=== PATIENT | male | born 2000 | race Caucasian/White ===

== ENCOUNTER → 2023-07-28 06:33 | Day surgery (SDC) | payer OTHER, SELFPAY | LOC: GI 06:33 | PROVIDERS: ATTENDING PHYSICIAN Internal Medicine | DX: K20.0 Eosinophilic esophagitis (principal); K22.89 Other specified disease of esophagus; K44.9 Diaphragmatic hernia without obstruction or gangrene; R13.10 Dysphagia, unspecified | CPT/HCPCS: 43239; 88305 ==

== ENCOUNTER → 2024-01-27 06:16 | Day surgery (SDC) | payer OTHER, SELFPAY | LOC: GI 06:16 | PROVIDERS: ATTENDING PHYSICIAN Internal Medicine | DX: K20.90 Esophagitis, unspecified without bleeding (principal); K22.89 Other specified disease of esophagus; K44.9 Diaphragmatic hernia without obstruction or gangrene | CPT/HCPCS: 43239; 88305; 71046; 80053; 84484; 85025; 87502; 87811; 93005 ==

== ENCOUNTER 2024-01-27 20:31 | Emergency (ER) | payer OTHER, SELFPAY ==
[2024-01-27 20:33] VITALS: BP 126/85
[2024-01-27 21:04] LABS: % Basophils 0.6 % (0-2); % Eosinophils 6.6 % (0-6); % Immature Granulocytes 0.3 % (0-0.5); % Lymphocytes 11.7 % (20.5-51.1); % Monocytes 7.3 % (1.7-9.3); % Neutrophils 73.5 % (42.2-75.2); Absolute Basophils 0.1 10^3/uL (0-0.2); Absolute Lymphocytes 1.7 10^3/uL (1.2-3.4); Absolute Monocytes 1.1 10^3/uL (0.1-0.6); Absolute Neutrophils 10.9 10^3/uL (1.4-6.5); Hematocrit 44.6 % (39.0-52.0); Hemoglobin 15.2 g/dL (13.0-18.0); Mean Corp Hgb Conc. 34.1 g/dL (33.0-37.0); Mean Platelet Volume 8.4 fL (7.4-10.4); Nucleated Red Blood Cells % 0 % (-); Platelet Count 197 10^3/uL (130-400); Red Blood Cell Count 5.07 10^6/uL (4.70-6.10); Red Cell Dist. Width 11.8 % (11.5-14.5); White Blood Cell Count 14.8 10^3/uL (4.8-10.8)
[2024-01-27 21:21] LABS: ALT (SGPT) 31 U/L (0-50); AST (SGOT) 24 U/L (17-59); Albumin 4.7 g/dl (3.5-5.0); Alkaline Phosphatase 48 U/L (38-126); Blood Urea Nitrogen 13 mg/dl (9-20); Calcium 9.4 mg/dl (8.4-10.2); Carbon Dioxide 28 mmol/L (22-30); Chloride 101 mmol/L (98-107); Glucose 133 mg/dl (70-99); Potassium 4.2 mmol/L (3.5-5.1); Sodium 140 mmol/L (135-145); Total Bilirubin 0.6 mg/dl (0.2-1.3); Total Protein 7.3 g/dl (6.3-8.2); eGFR > 60.00
[2024-01-27 21:24] LABS: Troponin I < 0.012 ng/ml
[2024-01-27 22:00] VITALS: BMI 29.6
[2024-01-27 22:19] LABS: COVID-19 Antigen Negative (Negative)
--- NOTE | 2024-01-28 00:05 | ED.GENMED ---
History of Present Illness
<RADHA Coffey - Last Filed: 01/28/24 00:17>
General
Chief Complaint: Fever
Source: patient, significant other and family
Exam Limitations: none
Time Seen by Provider: 01/27/24 23:55
Nursing documentation reviewed up to this point in time: agreed with
History of Present Illness
History of Present Illness:
Pt is a 23 yo M with PMH of eosinophilic esophagitis and GERD who presents to the ED with his mother and girlfriend for fever x 8 hours. Pt states he was under anesthesia for an endoscopy earlier today for a check up on his eosinophilic esophagitis.
He states he developed a cough upon waking up from the procedure but was d/c and went home. When he got home, he began to get chills and was very tired. Pt began developing chest pain a few hours later. He describes it as diffuse and episodic. He
states he has not taken any medication since waking up from anesthesia. Pt notes he also has associated nausea that has been episodic without vomiting. Pt's mother is concerned the endoscopy perforated his esophagus or caused an infection. Pt denies
PALACIOS, rhinorrhea, sputum production, hemoptysis, dyspnea, abdominal pain, v/d, weakness in extremities x 4.
Past History
<RADHA Coffey - Last Filed: 01/28/24 00:17>
Past History
ED Past Medical History: GERD and Other (Esophageal strictures)
ED Past Surgical History: None
Social History
Tobacco: Non-smoker
Review of Systems
<RADHA Coffey - Last Filed: 01/28/24 00:17>
Review of Systems
Allergies reviewed?: Yes
Other source history: family
Constitutional: Reports fever, fatigue and chills
EENT: Reports sore throat; Denies tearing, mouth swelling or runny nose
Respiratory: Reports cough; Denies hemoptysis or trouble breathing
Cardiac: Reports chest pain and diaphoresis; Denies palpitations or syncope
ABD/GI: Reports nausea; Denies abdominal pain, vomiting or diarrhea
: Denies dysuria or difficulty voiding
Musculoskeletal: Reports no symptoms
Skin: Reports no symptoms
Neurological: Denies dizzy, headache, weakness or numbness
Phy Exam
<RADHA Coffey - Last Filed: 01/28/24 00:17>
General Physical Exam
General Presentation: no apparent distress
General age: appears stated age
General Skin: diaphoretic
General Habitus: normal
General Mental: alert
General Hydration: dry mucous membranes (mild)
ENT Exam
ENT Exam: pharyngeal erythema
Cardiovascular Exam
Cardiovascular Exam: regular rate/rhythm and no murmur
Pulmonary Exam
Pulmonary Exam: lungs clear and no respiratory distress
Gastrointestinal Exam
Gastrointestinal Exam: non tender, soft and non distended
Neurological Exam
Neurological Exam: alert, oriented x3, no motor deficits, no sensory deficits and speech normal
Course
<Adela Nguyễn RINKU - Last Filed: 01/28/24 00:17>
Orders/Labs/Results
Orders:
Orders
01/27/24 20:36
Electrocardiogram (*1) Urgent
Reason for Study: Chest Pain
EKG- Treatment ONCE
CR Chest - 2 Views Urgent
Comment:
Reason For Exam: chest pain
01/27/24 20:49
Complete Blood Count/With Diff Urgent
Comprehensive Metabolic Panel Urgent
Troponin I Urgent
01/27/24 21:57
COVID-19 Antigen Urgent
Source: Nasal Swab
Influenza A+B Rapid Molecular Urgent
FIDEL Source: Nasal Swab
Specimen Description:
01/28/24 01:14
Orthostatic VS- Treatment ONCE
01/28/24 01:17
0.9% Sodium Chloride 500 ml [Nss] 500 ml IV BOLUS
Abnormal Lab Results
01/27/24
20:49
WBC 14.8 H 10^3/uL
(4.8-10.8)
Absolute Neuts (auto) 10.9 H 10^3/uL
(1.4-6.5)
Absolute Monos (auto) 1.1 H 10^3/uL
(0.1-0.6)
Absolute Eos (auto) 1.0 H 10^3/uL
(0-0.7)
Lymphocytes % 11.7 L %
(20.5-51.1)
Eosinophils % 6.6 H %
(0-6)
Glucose 133 H mg/dl
(70-99)
01/27/24 20:49
01/27/24 20:49
Vital Signs
Initial and Last Documented VS:
Initial Vital Signs
Temp Pulse Resp BP Pulse Ox
99.8 F 107 18 126/85 96
01/27/24 20:33 01/27/24 20:33 01/27/24 20:33 01/27/24 20:33 01/27/24 20:33
Last Documented Vital Signs
Temp Pulse Resp BP Pulse Ox
99.8 F 86 16 123/72 96
01/27/24 20:33 01/28/24 00:43 01/28/24 00:43 01/28/24 00:43 01/28/24 00:43
<Lenny Flanagan, DO - Last Filed: 01/28/24 01:38>
Orders/Labs/Results
Orders:
Orders
01/27/24 20:36
Electrocardiogram (*1) Urgent
Reason for Study: Chest Pain
EKG- Treatment ONCE
CR Chest - 2 Views Urgent
Comment:
Reason For Exam: chest pain
01/27/24 20:49
Complete Blood Count/With Diff Urgent
Comprehensive Metabolic Panel Urgent
Troponin I Urgent
01/27/24 21:57
COVID-19 Antigen Urgent
Source: Nasal Swab
Influenza A+B Rapid Molecular Urgent
FIDEL Source: Nasal Swab
Specimen Description:
01/28/24 01:14
Orthostatic VS- Treatment ONCE
01/28/24 01:17
0.9% Sodium Chloride 500 ml [Nss] 500 ml IV BOLUS
Abnormal Lab Results
01/27/24
20:49
WBC 14.8 H 10^3/uL
(4.8-10.8)
Absolute Neuts (auto) 10.9 H 10^3/uL
(1.4-6.5)
Absolute Monos (auto) 1.1 H 10^3/uL
(0.1-0.6)
Absolute Eos (auto) 1.0 H 10^3/uL
(0-0.7)
Lymphocytes % 11.7 L %
(20.5-51.1)
Eosinophils % 6.6 H %
(0-6)
Glucose 133 H mg/dl
(70-99)
01/27/24 20:49
01/27/24 20:49
Vital Signs
Initial and Last Documented VS:
Initial Vital Signs
Temp Pulse Resp BP Pulse Ox
99.8 F 107 18 126/85 96
01/27/24 20:33 01/27/24 20:33 01/27/24 20:33 01/27/24 20:33 01/27/24 20:33
Last Documented Vital Signs
Temp Pulse Resp BP Pulse Ox
99.8 F 86 16 123/72 96
01/27/24 20:33 01/28/24 00:43 01/28/24 00:43 01/28/24 00:43 01/28/24 00:43
<RADHA Coffey - Last Filed: 01/28/24 00:17>
MDM/Problems Addressed
Differential Diagnosis Includes:
esophageal perforation, LA
<RADHA Coffey - Last Filed: 01/28/24 00:17>
*Critical Care Note
Total Time (30-74mins, 75-104mins- exclusive of procedures): Not Applicable
<Lenyn Flanagan DO - Last Filed: 01/28/24 01:38>
Update Note
Update Note:
The orthostatic vital signs noted
Endoscopy results from 01/27/2024:
Impression: - Esophageal mucosal changes consistent with
eosinophilic esophagitis. Improved from prior
endoscopy especially in mid/upper esophagus. No longer
small caliber esophagus.
- 2 cm hiatal hernia.
- Normal stomach.
- Normal examined duodenum. Biopsied.
- Biopsies were taken with a cold forceps for
evaluation of eosinophilic esophagitis.
ED Attending Note
<RADHA Coffey - Last Filed: 01/28/24 00:17>
-
Portions of this chart may have been created with voice recognition software.� Occasional wrong word or��sound alike� substitutions may have occurred due to the inherent limitations of voice recognition software.
<Lenny Flanagan DO - Last Filed: 01/28/24 01:38>
ED Attending Note
Patient seen and examined by attending physician: Yes
I performed the substantive portion of visit, reviewed & personally made and approve the management plan that is documented in note by myself or BRIAN.: Yes
ED Attending Note:
Pleasant 23-year-old male presents to the emergency department with chills and low-grade fever. Patient had an endoscopy earlier today for review of his eosinophilic esophagitis. He states that the procedure went well and he was feeling fine when
he went home. Tonight he got chills and felt tired. He did develop midsternal chest pain. Patient did report some nausea without vomiting. Patient was seen in conjunction with the PA student. I have reviewed and agree with the history and
treatment plan presented. On my independent physical exam, patient is awake, alert, and oriented x3 minimal acute distress. Heart is regular rate and rhythm. Lungs are clear to auscultation bilaterally without wheezes rales or rhonchi present.
Abdomen is soft and nontender.
Chest x-ray is normal. No evidence of free air
Discharge Plan
Departure
Prescriptions:
No Action
No Current Medications
0
Referrals:
Kristine Prakash CRNP [Family Provider] -
Interventions
Interventions:
*Risk Screen - Suicide Last Done: 01/27/24 20:33
*General Assessment Last Done: 01/27/24 20:33
*Neglect/Abuse Screening Last Done: 01/27/24 20:33
ED- Fall Risk Assessment Last Done: 01/27/24 22:00
*ED COVID-19 Vaccine History Last Done: 01/27/24 20:33
ED- Neurological Assessment Last Done: 01/27/24 22:00
ED-Skin Assessment Last Done: 01/28/24 00:44
Discharge Date and Time
Print Language: JAPANESE
[2024-01-28 00:43] VITALS: BP 123/72
[2024-01-28 01:24] VITALS: BP 125/78; BP 128/77; BP 133/72; PULSE 82; PULSE 83; PULSE 86
[2024-01-28 02:30] VITALS: BP 138/84
== END 2024-01-28 02:30 | disposition home or self-care (01) ==
LOC: EMR 20:31
PROVIDERS: Emergency Medicine; EMERGENCY PHYSICIAN Student in an Organized Health Care Education/Training Program; FAMILY PHYSICIAN Registered Nurse
DX: R07.89 Other chest pain (principal); K20.0 Eosinophilic esophagitis; K44.9 Diaphragmatic hernia without obstruction or gangrene
CPT/HCPCS: 71046; 80053; 84484; 85025; 87502; 87811; 93005; 99283

== ENCOUNTER 2024-08-28 06:19 | Day surgery (SDC) | payer OTHER, SELFPAY | END 2024-08-28 15:59 | disposition home or self-care (01) | LOC: GI 06:19 | PROVIDERS: ATTENDING PHYSICIAN Internal Medicine | DX: K22.2 Esophageal obstruction (principal); K20.0 Eosinophilic esophagitis; K20.90 Esophagitis, unspecified without bleeding; R13.14 Dysphagia, pharyngoesophageal phase; K44.9 Diaphragmatic hernia without obstruction or gangrene | CPT/HCPCS: 43249; 43239; 88305; 88342 ==